=== PATIENT | female | born 1995 | race Caucasian/White ===

== ENCOUNTER 2024-12-01 14:43 | Emergency (ER) | payer MEDICAID, OTHER ==
[~2024-12-01] VITALS: Ht 149.9 cm; Wt 45.0 kg
[2024-12-01 14:45] VITALS: PULSE 110; RESP 14; O2SAT 99
[2024-12-01 14:46] VITALS: BP 133/84; TEMP 36.7; O2SAT 99
[2024-12-01] MEDS: KETOROLAC 30MG/ML VIAL IV STA (17:14)
[2024-12-01] MEDS: KETOROLAC 30MG/ML VIAL IM STA (17:21)
[2024-12-01] MEDS: LIDOCAINE HCL/PF 1% 10 MG/ML 5ML VIAL INFIL ONE (17:29)
[2024-12-01] MEDS: BACITRACIN ZINC OINT UDPKT TOP ONE (17:29)
[2024-12-01] MEDS ORDERED: CLIN-194 MT (17:59)
[2024-12-01] MEDS: TETANUS, DIPHTHERIA, PERTUSSIS VAC/PF 0.5ML (>10YR OLD) IM ONE (18:20)
== END 2024-12-01 18:32 | disposition home or self-care (01) ==
LOC: ER 14:43
DX: L02.811 Cutaneous abscess of head [any part, except face] (principal); Z98.890 Other specified postprocedural states
CPT/HCPCS: 81025; 90715; 10060; 90471; 96372; 99284; J2003; Z7610; J1885